=== PATIENT | male | born 1965 | race Caucasian/White ===

== ENCOUNTER 2017-03-30 13:24 | Emergency (ER) | payer OTHER ==
[~2017-03-30] VITALS: Ht 167.6 cm; Wt 95.0 kg
[2017-03-30 13:31] VITALS: Ht 167.6 cm; Wt 95.0 kg
[2017-03-30] MEDS ORDERED: HYDR28.334 TP (16:01)
--- NOTE | 2017-03-30 16:17 | ERD ---
ER Documentation Chief Complaint Chief Complaint GENERALIZED BODY RASH X2 WEEKS HPI 51-year-old male presents with a chief complaint of generalized body rash 2 weeks. History of diabetes mellitus type 2. Denies fever, rapid progression of symptoms, recent antibiotic use, symptomatic close contacts, pruritus, pain, skin opening, or bite. No new or changed medications. No recent travel. Has not used any medications to relieve the symptoms. Patients vaccination status is up to date. ROS All systems reviewed and are negative except as per history of present illness. Medications Home Meds Active Scripts Hydrocortisone (Hydrocortisone Cr) 28.35 Gm Cr, 28.35 GM TP BID for 14 Days, #1 Prov:JERMAN GOLDSTEIN PA-C 03/30/17 Allergies Allergies: Coded Allergies: No Known Allergy (Unverified , 03/30/17) PMhx/Soc History of Surgery: No Anesthesia Reaction: No Hx Neurological Disorder: No Hx Respiratory Disorders: No Hx Cardiac Disorders: No Hx Psychiatric Problems: No Hx Miscellaneous Medical Probl: No Hx Alcohol Use: Yes Hx Substance Use: No Hx Tobacco Use: No Smoking Status: Former smoker Physical Exam Vitals Vital Signs Date Time Temp Pulse Resp B/P Pulse Ox O2 Delivery O2 Flow Rate FiO2 03/30/17 13:31 98.5 110 20 127/83 96 Physical Exam Const: Healthy-appearing. Well-nourished. Well-developed. No acute distress. Skin: Diffuse maculopapular rash that is dark red to purple in color. Blanching. No petechiae. No specific pattern. Spares hands and feet. Starts at the waistline and goes up to both arms bilaterally. No ulcer, induration, jaundice. Good turgor. Ext: No cyanosis or edema noted. Head: Normocephalic. As noted in skin exam. Eyes: Non-injected; No scleral erythema, or discharge. EOMI and ANN-MARIE bilaterally. Ears: Normal External Ears, EACs clear, TM normal bilaterally without erythema. Nose: Normal nose without discharge, septal deviation, or sinus tenderness. Oral: No oral edema visualized. Mucous membranes moist and pink. Neck: No cervical lymphadenopathy, or masses. Trachea midline. Supple ~ No meningismus. Pulm: Good air movement in upper and lower respiratory tracts. No dyspnea, stridor, tripoding or drooling. Clear to auscultation bilaterally. Cardio: Regular rate and rhythm. No JVD grossly observed. Radial and posterior tibial pulses 2+ bilaterally. No cyanosis. Capillary refill less than 2 seconds. Abd: Soft, non tender, non distended. No guarding. Normal bowel sounds. MS: Normal motor strength, normal tone with gross examination. Back: No midline or flank tenderness. Neur: Neurovascularly intact bilaterally. Awake, alert and oriented x3. Procedures/MDM 51-year-old male presents with a chief complaint of rash 2 weeks. Has not taken any medications to relieve the symptoms. No identifiable triggers. No similar symptoms in the past. No itching or pain. I have little suspicion for EM, SJS, TEN, serious bacterial infection, fungal involvement. Most likely diagnosis is skin rash of unknown etiology. Patient will be given hydrocortisone cream with instructions to follow-up if symptoms persist, change , worsen. Discharge medications include hydrocortisone cream applied twice daily. I have spoke with the patient regarding their condition and future management. They have verbally responded that they understand their status and treatment plan. The patients vitals are stable, and their current condition is appropriate for discharge. The patient will be given discharge instructions with return precautions. Departure Diagnosis: Primary Impression: Rash and other nonspecific skin eruption Condition: Stable Patient Instructions: Self-Care for Skin Rashes Additional Instructions: León un seguimiento con [facility] PCP dentro de los prximos 1-3 ballesteros para don evaluaci n ms completa y don posible derivacin a un especialista. Devuelva el departamento de emergencia inmediatamente si los sntomas empeoran o cambian. Si tiene alguna pregunta con respecto a los medicamentos, consulte con [facility] farmac utico o con nosotros antes de salir. Si se producen reacciones adversas mientras luke gurwinder medicamentos, suspenda el tratamiento y regrese inmediatamente al servicio de urgencias. [facility] gurwinder medicamentos segn las indicaciones y complete el curso completo del tratamiento. JERMAN GOLDSTEIN PA-C Mar 30, 2017 16:17
== END 2017-03-30 16:21 | disposition home or self-care (01) ==
LOC: FTE 13:24
DX: R21 Rash and other nonspecific skin eruption (principal); E11.9 Type 2 diabetes mellitus without complications; Z87.891 Personal history of nicotine dependence
CPT/HCPCS: 99283